=== PATIENT | female | born 1950 | race Caucasian/White ===

== ENCOUNTER → 2017-08-29 | Outpatient (CLI) | payer MEDICARE ==
--- NOTE | 2017-08-29 15:02 | CTL ---
EXAMINATION TYPE: CT Low Dose Lung DATE OF EXAM ORDERED: 08/29/2017 HISTORY: 66-year-old female with personal history of tobacco use, quit smoking in 2004. Lung cancer s creening CT DLP: 60.[address] CTDI: 1.68 mGy Automated exposure control for dose reduction was used. SCREENING VISIT: Baseline COMPARISON: None TECHNIQUE: Low dose computed tomography scan was performed through the chest at 1 mm thick sections a nd reconstructed images in the coronal plane at [address] DIAGNOSTIC QUALITY: Limited, but interpretable FINDINGS: There is prominent noise artifact from patient's large body habitus and low-dose radiation protocol. Heart is upper limits of normal in size without pericardial effusion. Coronary vessel calcifications are present and are a marker for coronary artery disease. The aorta is normal caliber with conventional arch vessel branching anatomy mild atherosclerotic arch calcifications. There is a 2.6 x 2.8 cm soft tissue nodule along the right paratracheal region, axial image 40. Some calcified left hilar lymph nodes suggest prior granulomatous disease. -[id number] diffuse bronchial wall thickening and focal patchy groundglass in the right midlung , axial image 112. - Tiny 3 mm subpleural pulmonary nodule is noted at the peripheral right midlung, axial image 105. - Strandy atelectasis in the inferior lingula and peripheral left base. - No consolidation or pleural effusion. Mild emphysematous change. Tiny hiatal hernia. Limited assessment of the upper abdomen due to the extent of moist artifact. Bones: Mild endplate spondylosis mid to lower thoracic spine. IMPRESSION: 1. BI-RADS 2 - benign appearance; tiny 3 mm pulmonary nodule at baseline. 2. A 2.8 cm soft tissue nodule along the right paratracheal region. Uncertain if this represents subs ternal thyroid extension or lymphadenopathy. Consider nuclear medicine thyroid scan to determine if t his represents thyroid tissue. Follow-up is recommended. 3. COPD and a patch of groundglass in the right midlung could represent a small infectious/inflammato ry focus. Clinically correlate. 4. Tiny hiatal hernia. RECOMMENDATION: 1. Continue with annual low-dose CT screening. 2. Recommendations in regards to the right paratracheal nodule mentioned above. 3. Smoking cessation.
== END | disposition home or self-care (01) ==
LOC: RADCTMAIN 13:08
PROVIDERS: ATTEND Internal Medicine Sleep Medicine
DX: Z12.2 Encounter for screening for malignant neoplasm of respiratory organs (principal); R91.1 Solitary pulmonary nodule; R91.8 Other nonspecific abnormal finding of lung field; J44.9 Chronic obstructive pulmonary disease, unspecified; K44.9 Diaphragmatic hernia without obstruction or gangrene; Z87.891 Personal history of nicotine dependence

== ENCOUNTER → 2017-11-22 | Outpatient (CLI) | payer MEDICARE ==
[2017-11-22 11:57] LABS: Blood Urea Nitrogen 19 mg/dL (7-17)
--- NOTE | 2017-11-22 14:02 | CT ---
EXAMINATION TYPE: CT neck chest w con DATE OF EXAM: 11/22/2017 COMPARISON: CT 08/29/2017 HISTORY: 67-year-old female with pulmonary nodule and Lymphadenopathy. Follow-up exam TECHNIQUE: Contiguous axial scanning of the neck and chest performed with IV Contrast, patient inject ed with 100 ml mL of Omnipaque 300. Coronal/sagittal reconstructions performed. CT DLP: 1484 mGycm Automated exposure control for dose reduction was used. FINDINGS: NECK: Visualized intracranial structures, orbits and globes, mastoid air cells, and paranasal sinuses appea r clear. The nasopharynx appears clear. There is retropharyngeal course of the internal carotid arteries impressing on the posterior pharynge al wall. Otherwise, oropharynx appears clear. The glottic and subglottic structures as well as the tracheal column are clear. Prevertebral soft tissues and epiglottis are normal. There is heterogeneous enlargement of the right lobe of the thyroid gland. Suspected underlying 1.5 c m nodule posterior mid pole. Previously described right paratracheal nodule appears to be extending from the thyroid gland and jt sures 2.8 x 3.1 cm, nodule image 46. Axial image 61 and 65. Scattered nonenlarged cervical lymph nodes are present. The submandibular and parotid glands appear satisfactory. Moderate spondylotic change lower cervical spine. CHEST: Heart is normal size without pericardial effusion. Coronary vessel calcifications are present in rem arkable for coronary artery disease. Ascending aorta is ectatic and 3.5 cm. There is mild to moderate atherosclerotic arch calcifications with conventional arch vessel branching anatomy. The right paratracheal nodule mentioned above does not seem to have significantly changed in size. Scattered nonenlarged mediastinal lymph nodes. Calcified subcarinal and left hilar lymph nodes compat ible with prior granulomatous disease. Calcified granuloma left lower lobe. Additional calcified granuloma along the left major fissure. Mild centrilobular emphysema. Tiny 3 mm subpleural pulmonary nodule peripheral right midlung is unchanged, axial image 21. Focal gr oundglass posterior right upper lobe axial image 25 is also unchanged. A 1 year follow-up is recommen ded to reassess this area. No consolidation or pleural effusion. Tiny hiatal hernia. Calcified granulomas in the spleen. Cholecystectomy clips are present. Suspect fatty infiltration of the liver. Mild diverticulosis in the visualized colon. A 1.3 cm nodule in the left adrenal gland is inadequately characterized but statistically, represents a benign adrenal adenoma. Bones: Degenerative disc disease mid to lower thoracic spine. IMPRESSION: NECK: 1. HETEROGENEITY OF THE RIGHT LOBE OF THE THYROID GLAND. UNDERLYING 1.5 CM POSTERIOR MID POLE NODULE IS SUSPECTED. 2. IN ADDITION, THE PREVIOUSLY DESCRIBED RIGHT PARATRACHEAL NODULE IS CONFIRMED TO EXTEND FROM THE TH YROID GLAND AND REPRESENTS A 3.1 X 2.8 CM NODULE, NOT SIGNIFICANTLY CHANGED. THYROID ULTRASOUND CAN F URTHER EVALUATE. DECISION TO BIOPSY CAN BE SUBSEQUENTLY MADE. CHEST: 1. COPD. NO NEW PULMONARY NODULES. THERE IS EVIDENCE OF PRIOR GRANULOMATOUS DISEASE. 2. FOCAL GROUNDGLASS POSTERIOR RIGHT UPPER LOBE REMAINS UNCHANGED FOR NEARLY 3 MONTHS. PATIENT CAN RE SUME ANNUAL LUNG CANCER SCREENING WHERE THIS CAN BE MONITORED. 3. A 1.3 CM LEFT ADRENAL GLAND NODULE IS INDETERMINATE BUT STATISTICALLY, REPRESENTS A BENIGN ADRENAL ADENOMA. THIS CAN ALSO BE REASSESSED ON THE PATIENT'S FOLLOW-UP EXAMS.
== END | disposition home or self-care (01) ==
LOC: RADCTMAIN 11:11
PROVIDERS: ATTEND Internal Medicine Sleep Medicine
DX: J44.9 Chronic obstructive pulmonary disease, unspecified (principal); D35.02 Benign neoplasm of left adrenal gland; E07.89 Other specified disorders of thyroid; R22.1 Localized swelling, mass and lump, neck; R91.1 Solitary pulmonary nodule; R59.0 Localized enlarged lymph nodes
CPT/HCPCS: 82565; 84520; 70491; 71260; 36415; Q9967

== ENCOUNTER → 2018-02-28 | Outpatient (CLI) | payer MEDICARE ==
[~2018-02-28] MED LIST: COSYNTROPIN 0.25 MG VIAL IVP ONE
[2018-02-28 09:09] VITALS: BP 149/69; PULSE 86; RESP 18; TEMP 97.7
[2018-02-28 18:27] LABS: Hemoglobin A1C 7.9 % (4.0-6.0)
== END | disposition home or self-care (01) ==
LOC: PROCWHC3 07:59
PROVIDERS: ATTEND Internal Medicine
DX: E27.9 Disorder of adrenal gland, unspecified (principal); E11.65 Type 2 diabetes mellitus with hyperglycemia
CPT/HCPCS: 83835; 82533; 82088; 84244; 82024; 83036; 96375; 96374; J0834; 82384

== ENCOUNTER → 2018-06-21 | Outpatient (CLI) | payer MEDICARE ==
--- NOTE | 2018-06-21 14:49 | XR ---
EXAM TYPE: LUMBAR SPINE X RAY SERIES COMPARISON: NONE HISTORY: Pain TECHNIQUE: 4 views are submitted. FINDINGS: Alignment is anatomic. The pedicles are intact. The transverse processes are intact. There is diff use osteopenia. Surgical clips in the right upper quadrant. There is a grade 1 anterolisthesis of L3 on L4. Multilevel moderate degenerative disc disease and advanced facet arthropathy. Vascular calcifi cations noted. IMPRESSION: 1. Multilevel degenerative disc disease, diffuse arthropathy with grade 1 anterolisthesis L3 on L4.
== END | disposition home or self-care (01) ==
LOC: RADXRYALE 12:53
PROVIDERS: ATTEND Internal Medicine
DX: M51.16 Intervertebral disc disorders with radiculopathy, lumbar region (principal); M43.16 Spondylolisthesis, lumbar region; M46.96 Unspecified inflammatory spondylopathy, lumbar region
CPT/HCPCS: 72110

== ENCOUNTER → 2019-03-14 | Outpatient (CLI) | payer MEDICARE ==
--- NOTE | 2019-03-14 15:44 | US ---
EXAMINATION TYPE: US kidneys/renal and bladder DATE OF EXAM: 03/14/2019 COMPARISON: NONE CLINICAL HISTORY: N28.1 renal cyst. EXAM MEASUREMENTS: Right Kidney: 13.7 x 5.3 x 6.0 cm Left Kidney: 13.5 x 5.4 x 6.2 cm Right Kidney: cyst lat/lower measures 2.5 x 2.6 x 2.7 cm. Left Kidney: No hydronephrosis or masses seen Bladder: wnl Bilateral Jets seen: Yes There is no evidence for hydronephrosis at this point in time. No nephrolithiasis is seen. No jenise s are identified. The urinary bladder is anechoic. Bilateral ureteral jets are seen. IMPRESSION: No hydronephrosis or nephrolithiasis. Simple appearing right renal cyst is seen measuring 2.7 cm. No internal complexity.
== END | disposition home or self-care (01) ==
LOC: RADUSWWP 15:14
PROVIDERS: ATTEND Internal Medicine
DX: N28.1 Cyst of kidney, acquired (principal)
CPT/HCPCS: 76770

== ENCOUNTER 2021-03-02 03:08 | Emergency (ER) | payer MEDICARE ==
--- NOTE | 2021-03-02 03:18 | ED ---
Recheck HPI - General Source: RN notes reviewed, old records reviewed Mode of arrival: EMS Limitations: no limitations - History of Present Illness MD Complaint: abnormal lab, other (Persistent nausea vomiting and headache) -: week(s) Returns Today for: persistent/worsening pain related to initial visit Symptoms Since Prior Visit: worsening pain Associated Symptoms: malaise, nausea Treatments Prior to Arrival: Given Pain Meds on <Coleman Jones - Last Filed: 03/02/21 07:50> <Arnoldo Garcia - Last Filed: 03/02/21 11:00> - General Stated Complaint: Nausea, vomiting Time Seen by Provider: 03/02/21 03:11 - History of Present Illness Initial Comments: This is a 70-year-old female DF for evaluation relatively poor strain secondary to current clinical condition which includes severe headache with persistent nausea and vomiting. Patient is just out of hospitalization 1 week and [facility] for same symptoms. She had headache during entire stay with persistent nausea vomiting and was told there was a be self-limited. states patient has had persistent headache. Patient very stubborn and does not want to come the hospital. No other fevers or (Coleman Jones) - Related Data Home Medications Medication Instructions Recorded Confirmed Aspirin [Adult Low Dose Aspirin EC] 81 mg PO DAILY 02/28/18 03/02/21 Carvedilol [Coreg] 6.25 mg PO DAILY 02/28/18 03/02/21 Insulin Aspart (For Pump) [NovoLOG 0.01 unit SQ-PUMP CONTINUOUS 02/28/18 03/02/21 (For Pump)] Losartan [Cozaar] 50 mg PO DAILY 02/28/18 03/02/21 Nitroglycerin 0.4 mg SUBLINGUAL Q5M PRN 02/28/18 03/02/21 Albuterol Sulfate [Ventolin HFA] 2 puff INHALATION RT-Q6H PRN 03/02/21 03/02/21 Cholecalciferol [Vitamin D3 (25 50 mcg PO DAILY 03/02/21 03/02/21 Mcg = 1000 Iu)] Meclizine [Antivert] 25 mg PO Q6H PRN 03/02/21 03/02/21 Oxybutynin Chloride 5 mg PO DAILY 03/02/21 03/02/21 Allergies Allergy/AdvReac Type Severity Reaction Status Date / Time iodine Allergy Itching Verified 03/02/21 09:33 metformin Allergy Unknown Verified 03/02/21 09:33 codeine AdvReac Vomiting Verified 03/02/21 09:33 rosuvastatin [From Crestor] AdvReac muscle pain Verified 03/02/21 09:33 Review of Systems ROS Other: All systems not noted in ROS Statement are negative. <Coleman Jones - Last Filed: 03/02/21 07:50> ROS Other: All systems not noted in ROS Statement are negative. <Arnoldo Garcia Raghavendra - Last Filed: 03/02/21 11:00> ROS Statement: Those systems with pertinent positive or pertinent negative responses have been documented in the HPI. General Exam General appearance: alert, in no apparent distress Head exam: Present: atraumatic, normocephalic, normal inspection Eye exam: Present: normal appearance, PERRL, EOMI. Absent: scleral icterus, conjunctival injection, periorbital swelling ENT exam: Present: normal exam, mucous membranes moist Neck exam: Present: normal inspection. Absent: tenderness, meningismus, lymphadenopathy Respiratory exam: Present: normal lung sounds bilaterally. Absent: respiratory distress, wheezes, rales, rhonchi, stridor Cardiovascular Exam: Present: regular rate, normal rhythm, normal heart sounds. Absent: systolic murmur, diastolic murmur, rubs, gallop, clicks GI/Abdominal exam: Present: soft, normal bowel sounds. Absent: distended, tenderness, guarding, rebound, rigid Extremities exam: Present: normal inspection, full ROM, normal capillary refill. Absent: tenderness, pedal edema, joint swelling, calf tenderness Back exam: Present: normal inspection Neurological exam: Present: alert, oriented X3, CN II-XII intact Psychiatric exam: Present: normal affect, normal mood Skin exam: Present: warm, dry, intact, normal color. Absent: rash <Coleman Jones - Last Filed: 03/02/21 07:50> Course <Coleman Jones - Last Filed: 03/02/21 07:50> Vital Signs 03/02/21 03/02/21 03/02/21 03:10 04:12 04:45 Temperature 98.3 F Pulse Rate 96 86 105 H Respiratory 18 18 20 Rate Blood Pressure 197/82 198/97 87/56 O2 Sat by Pulse 90 L 97 99 Oximetry 03/02/21 03/02/21 03/02/21 05:06 05:15 05:26 Temperature Pulse Rate 97 100 81 Respiratory 20 20 18 Rate Blood Pressure 101/56 107/57 69/49 O2 Sat by Pulse 99 99 99 Oximetry 03/02/21 03/02/21 03/02/21 05:35 05:41 05:56 Temperature Pulse Rate 87 83 80 Respiratory 18 20 18 Rate Blood Pressure 79/44 87/53 103/55 O2 Sat by Pulse 99 100 Oximetry 03/02/21 03/02/21 03/02/21 06:25 06:56 07:27 Temperature Pulse Rate 82 77 75 Respiratory 18 20 16 Rate Blood Pressure 117/63 142/66 126/57 O2 Sat by Pulse 100 97 Oximetry 03/02/21 03/02/21 03/02/21 08:29 09:20 10:45 Temperature Pulse Rate 78 73 85 Respiratory 16 16 16 Rate Blood Pressure 136/67 136/65 156/64 O2 Sat by Pulse 96 97 96 Oximetry - Reevaluation(s) Reevaluation #1: 03/02/21 05:40 Medical record is reviewed (Coleman Jones) Reevaluation #2: 03/02/21 05:40 Wall and x-ray patient did have a seizure. Because of seizure and headache patient went to computed tomography scan showing significant mass (Coleman Jones) - Consultations Consultation #1: Did speak with Dr. Stearns for oncology will obtain CTA chest abdomen pelvis (Coleman Jones) Medical Decision Making - Lab Data Result diagrams: 03/02/21 04:05 03/02/21 04:05 - EKG Data -: EKG Interpreted by Me (EKG sinus rhythm 87, HI 1:30 QRS 90 QTC 483) <Coleman Jones - Last Filed: 03/02/21 07:50> - Lab Data Result diagrams: 03/02/21 04:05 03/02/21 04:05 <Arnoldo Garcia - Last Filed: 03/02/21 11:00> - Medical Decision Making At 10:30 AM I was asked to evaluate this patient for possible transfer. The oncologist Dr. Stearns had seen the patient and reviewed imaging and requested that she be transferred for neurosurgical evaluation. At this time I did review the imaging showing a cerebellar mass with midline shift. She had been given Decadron and mannitol prior to my evaluation. Patient is arousable, somewhat lethargic. She is answering questions, she is alert and oriented 2. No facial droop. She is somewhat slow to respond and has mild dysarthria. She is moving all extremities symmetrically although she is weak throughout. Patient's states that she had complained of headache and nausea and vomiting for greater than 1 week. Patient had previously been admitted and the admitting physician Dr. Soto has also evaluated the patient and requested transfer. Patient will be transferred ER to ER. Her vital signs are stable she is maintaining her airway. I did discuss case with the ER physician at [facility] who will accept. (Arnoldo Garcia) - Lab Data Lab Results 03/02/21 03/02/21 03/02/21 Range/Units 04:05 04:05 04:05 WBC 15.9 H (3.8-10.6) k/uL RBC 5.54 H (3.80-5.40) m/uL Hgb 15.4 (11.4-16.0) gm/dL Hct 46.6 H (34.0-46.0) % MCV 84.1 (80.0-100.0) fL MCH 27.8 (25.0-35.0) pg MCHC 33.1 (31.0-37.0) g/dL RDW 13.7 (11.5-15.5) % Plt Count 349 (150-450) k/uL MPV 7.1 Neutrophils % 89 % Lymphocytes % 6 % Monocytes % 4 % Eosinophils % 1 % Basophils % 0 % Neutrophils # 14.1 H (1.3-7.7) k/uL Lymphocytes # 0.9 L (1.0-4.8) k/uL Monocytes # 0.6 (0-1.0) k/uL Eosinophils # 0.2 (0-0.7) k/uL Basophils # 0.0 (0-0.2) k/uL PT 11.8 (9.0-12.0) sec INR 1.1 (<1.2) APTT 22.2 (22.0-30.0) sec Sodium 138 (137-145) mmol/L Potassium 3.1 L (3.5-5.1) mmol/L Chloride 95 L (98-107) mmol/L Carbon Dioxide 34 H (22-30) mmol/L Anion Gap 9 mmol/L BUN 16 (7-17) mg/dL Creatinine 0.63 (0.52-1.04) mg/dL Est GFR (CKD-EPI)AfAm >90 (>60 ml/min/1.73 sqM) Est GFR (CKD-EPI)NonAf >90 (>60 ml/min/1.73 sqM) Glucose 195 H (74-99) mg/dL POC Glucose (mg/dL) (75-99) mg/dL POC Glu Roller Painter ID Plasma Lactic Acid Sven (0.7-2.0) mmol/L Calcium 10.1 (8.4-10.2) mg/dL Magnesium 1.9 (1.6-2.3) mg/dL Total Bilirubin 1.0 (0.2-1.3) mg/dL AST 36 (14-36) U/L ALT 36 H (4-34) U/L Alkaline Phosphatase 126 (38-126) U/L Lactate Dehydrogenase 1114 H (313-618) U/L C-Reactive Protein 22.2 H (<10.0) mg/L Total Protein 7.3 (6.3-8.2) g/dL Albumin 4.1 (3.5-5.0) g/dL Coronavirus (PCR) (Not Detectd) 03/02/21 03/02/21 03/02/21 Range/Units 04:05 04:35 04:58 WBC (3.8-10.6) k/uL RBC (3.80-5.40) m/uL Hgb (11.4-16.0) gm/dL Hct (34.0-46.0) % MCV (80.0-100.0) fL MCH (25.0-35.0) pg MCHC (31.0-37.0) g/dL RDW (11.5-15.5) % Plt Count (150-450) k/uL MPV Neutrophils % % Lymphocytes % % Monocytes % % Eosinophils % % Basophils % % Neutrophils # (1.3-7.7) k/uL Lymphocytes # (1.0-4.8) k/uL Monocytes # (0-1.0) k/uL Eosinophils # (0-0.7) k/uL Basophils # (0-0.2) k/uL PT (9.0-12.0) sec INR (<1.2) APTT (22.0-30.0) sec Sodium (137-145) mmol/L Potassium (3.5-5.1) mmol/L Chloride (98-107) mmol/L Carbon Dioxide (22-30) mmol/L Anion Gap mmol/L BUN (7-17) mg/dL Creatinine (0.52-1.04) mg/dL Est GFR (CKD-EPI)AfAm (>60 ml/min/1.73 sqM) Est GFR (CKD-EPI)NonAf (>60 ml/min/1.73 sqM) Glucose (74-99) mg/dL POC Glucose (mg/dL) 172 H (75-99) mg/dL POC Glu Roller Painter ID Latha Kimball Plasma Lactic Acid Sven 1.7 (0.7-2.0) mmol/L Calcium (8.4-10.2) mg/dL Magnesium (1.6-2.3) mg/dL Total Bilirubin (0.2-1.3) mg/dL AST (14-36) U/L ALT (4-34) U/L Alkaline Phosphatase (38-126) U/L Lactate Dehydrogenase (313-618) U/L C-Reactive Protein (<10.0) mg/L Total Protein (6.3-8.2) g/dL Albumin (3.5-5.0) g/dL Coronavirus (PCR) Not Detected (Not Detectd) Critical Care Time Critical Care Time: Yes Total Critical Care Time: 35 <Arnoldo Garcia - Last Filed: 03/02/21 11:00> Disposition Is patient prescribed a controlled substance at d/c from ED?: No <Coleman Jones - Last Filed: 03/02/21 07:50> - Out of Hospital Transfer - Req. Specs Out of Hospital Transfer - Requested Specifics: Other Emergency Center (Transferred to [facility]) <Arnoldo Garcia - Last Filed: 03/02/21 11:00> Clinical Impression: Brain tumor, Adrenal tumor, Pulmonary neoplasm Disposition: OTHER INSTITUTION NOT DEFINED Condition: Serious
[2021-03-02 03:24] VITALS: TEMP 98.3
[2021-03-02] MEDS ORDERED: SODIUM CHLORIDE 0.9% 1,000 ML IV STA (03:32)
[2021-03-02] MEDS ORDERED: ONDANSETRON 4 MG/2 ML VIAL IVP STA (03:32)
[2021-03-02 04:21] LABS: Basophils % (A) 0 %; Eosinophils # (A) 0.2 k/uL (0-0.7); Eosinophils % (A) 1 %; HCT 46.6 % (34.0-46.0); HGB 15.4 gm/dL (11.4-16.0); Lymphocytes # (A) 0.9 k/uL (1.0-4.8); Lymphocytes % (A) 6 %; MCH 27.8 pg (25.0-35.0); MCHC 33.1 g/dL (31.0-37.0); MCV 84.1 fL (80.0-100.0); Mean Platelet Volume 7.1; Monocytes # (A) 0.6 k/uL (0-1.0); Monocytes % (A) 4 %; Neutrophils # (A) 14.1 k/uL (1.3-7.7); Neutrophils % (A) 89 %; Platelet Count 349 k/uL (150-450); RBC 5.54 m/uL (3.80-5.40); RDW 13.7 % (11.5-15.5); WBC 15.9 k/uL (3.8-10.6)
[2021-03-02 04:38] LABS: Glucose,Whole Blood 172 mg/dL (75-99)
[2021-03-02 04:38] LABS: INR 1.1 (<1.2); Partial Thromboplastin Time 22.2 sec (22.0-30.0); Prothrombin Time 11.8 sec (9.0-12.0)
[2021-03-02] MEDS ORDERED: levETIRAcetam IV 1,500 MG in SALINE 1 100ML.BAG IVPB STA (04:45)
[2021-03-02] MEDS ORDERED: DEXAMETHASONE SOD PHOSPHATE 10 MG/ML 1 ML VIAL IV STA (04:46)
--- NOTE | 2021-03-02 04:46 | XR ---
EXAM: XR Abdomen, 2 Views and XR Chest, 1 View CLINICAL HISTORY: ITS.REASON XR Reason: nv TECHNIQUE: Frontal view of the chest, abdomen/pelvis. COMPARISON: No relevant prior studies available. FINDINGS: Lungs: Small patchy airspace opacities over bilateral middle lung zones and possibly lower lung zones. Pleural space: Unremarkable. No pneumothorax. Mediastinum: Unremarkable. Gastrointestinal tract: Nonspecific bowel gas pattern. Moderate amount of stool in the colon. No dilation. Organs: Cholecystectomy clips. Bones/joints: Osteopenia. Mild degenerative changes. IMPRESSION: 1. Small patchy airspace opacities in both lungs may suggest pneumonia. 2. Nonspecific bowel gas pattern.
[2021-03-02] MEDS ORDERED: LORazepam 2 MG/ML INJ IV STA (04:52)
[2021-03-02 04:53] LABS: ALT 36 U/L (4-34); AST 36 U/L (14-36); African American GFR (CKD) >90 (>60 ml/min/1.73 sqM); Albumin 4.1 g/dL (3.5-5.0); Alkaline Phosphatase 126 U/L (38-126); Anion Gap 9 mmol/L; Blood Urea Nitrogen 16 mg/dL (7-17); Calcium 10.1 mg/dL (8.4-10.2); Carbon Dioxide 34 mmol/L (22-30); Chloride 95 mmol/L (98-107); Glucose 195 mg/dL (74-99); LDH 1114 U/L (313-618); Magnesium 1.9 mg/dL (1.6-2.3); Non-African American GFR(CKD) >90 (>60 ml/min/1.73 sqM); Potassium 3.1 mmol/L (3.5-5.1); Sodium 138 mmol/L (137-145); Total Protein 7.3 g/dL (6.3-8.2)
--- NOTE | 2021-03-02 04:59 | CT ---
EXAM: CT Head Without Intravenous Contrast CLINICAL HISTORY: Reason: sz TECHNIQUE: Axial computed tomography images of the head/brain without intravenous contrast. CTDI is 49.27 mGy and DLP is 1158.4 mGy-cm. This CT exam was performed using one or more of the following dose reduction techniques: automated exposure control, adjustment of the mA and/or kV according to patient size, and/or use of iterative reconstruction technique. Coronal and sagittal reformatted images were created and reviewed. COMPARISON: No relevant prior studies available. FINDINGS: Brain: 4.2 x 4.7 x 3.7 cm intraparenchymal hypodense mass with cystic and peripheral solid components centered in left cerebellum, causes mass effect and 8mm midline shift to the right, best seen on series 2 0 1 image 19. No hemorrhage. Ventricles: Unremarkable. No ventriculomegaly. Bones/joints: No acute findings. Soft tissues: Unremarkable. Sinuses: Unremarkable as visualized. No acute sinusitis. Mastoid air cells: Unremarkable as visualized. No mastoid effusion. Orbits: Bilateral cataract surgeries. IMPRESSION: 4.2 x 4.7 x 3.7 cm intraparenchymal hypodense mass with cystic and peripheral solid components centered in left cerebellum, causes mass effect and 8mm midline shift to the right
[2021-03-02 05:08] LABS: C Reactive Protein 22.2 mg/L (<10.0)
[2021-03-02] MEDS ORDERED: SODIUM CHLORIDE 0.9% 1,000 ML IV ONE (05:36)
[2021-03-02] MEDS ORDERED: FAMOTIDINE 20 MG/2 ML VIAL IV STA (05:37)
[2021-03-02] MEDS ORDERED: diphenhydrAMINE 50 MG/ML 1 ML VIAL IVP STA (05:37)
[2021-03-02 07:37] VITALS: RESP 16
--- NOTE | 2021-03-02 07:40 | CT ---
EXAMINATION TYPE: CT ChestAbdPelvis w con DATE OF EXAM: 03/02/2021 COMPARISON: Low dose lung CT 08/29/2017 HISTORY: Nausea, vomiting CT DLP: 2201.5 mGycm CONTRAST: CT scan of the chest, abdomen and pelvis is performed without Oral Contrast and with IV Contrast, pat ient injected with 100 mL of Isovue 300. CT Chest: LUNGS: New pulmonary nodule left perihilar region measures 2.5 cm. Nodular infiltrate right upper lob e measures 2.2 cm. Associated pleural thickening at the lung bases and mild atelectasis. MEDIASTINUM: Substernal extension of the thyroid nodule right paratracheal region measures 2.5 cm. T horacic aorta is of normal caliber. The heart is enlarged. No evidence for mediastinal mass or ольга opathy. HILAR STRUCTURES: No evidence for mass. No hilar adenopathy is appreciated. OTHER: No significant abnormality. CONTRAST CT ABDOMEN AND PELVIS FINDINGS: LIVER/GB: The gallbladder is surgically absent. No space occupying hepatic lesion. Biliary tree is of normal caliber. PANCREAS: No inflammation. No distinct mass. SPLEEN: No splenic enlargement. No lesion seen. ADRENALS: Large right adrenal mass measuring 8.5 x 8.3 cm. Left adrenal nodule measuring 1.3 cm. KIDNEYS/BLADDER: No hydronephrosis. No nephrolithiasis. 3.5 cm right renal cyst. BOWEL: Normal appe ndix. Normal bowel caliber. No inflammation. GENITAL ORGANS: No gross abnormality. LYMPH NODES: No greater than 1cm abdominal or pelvic lymph nodes are appreciated. AORTA: No significant abnormality. OSSEOUS STRUCTURES: Degenerative change throughout the visualized thoracic and lumbar spine. OTHER: No significant additional abnormality is seen. IMPRESSION: 1. New left hilar pulmonary nodule as well as nodular infiltrate. Malignancy is not excluded. 2. Large right adrenal mass as well as a smaller left adrenal nodule. Metastatic disease is not exclu ded.
[2021-03-02] MEDS ORDERED: MORPHINE SULFATE 4 MG/ML SYRINGE IVP PRN (07:49)
[2021-03-02] MEDS ORDERED: MORPHINE SULFATE 4 MG/ML SYRINGE IVP STA (07:49)
[2021-03-02] MEDS ORDERED: ONDANSETRON 4 MG/2 ML VIAL IVP PRN (07:49)
[2021-03-02] MEDS ORDERED: SODIUM CHLORIDE 0.9% 1,000 ML IV SCH (08:00)
[2021-03-02] MEDS ORDERED: MANNITOL 20% IV ONE (10:30)
[2021-03-02] MEDS ORDERED: SALINE IV ONE (10:30)
[2021-03-02 10:47] VITALS: BP 156/64; PULSE 85
[2021-03-02] MEDS ORDERED: DEXAMETHASONE SOD PHOSPHATE 4 MG/ML 1 ML VIAL IV SCH ×2 (12:00)
--- NOTE | 2021-03-02 12:52 | P.CONS ---
History of Present Illness - Reason for Consult Consult date: 03/02/21 Brain mass, adrenal lesion, bilateral pulmonary nodules Requesting physician: Coleman Jones - Chief Complaint Altered mental status, questionable seizure - History of Present Illness Mrs. Cartagena/is a 70-year-old female that we've been asked to see regarding a brain lesion 4.2 x 4.7 x 3.7 in the left cerebellum area. There is midline shift. Patient's is at the bedside for history. Patient is on the monitor, stable vital signs, resting comfortably in appearance. Patient hasn't states that while they were in [place] patient had a sudden onset of neck pain associated with headache, and vomiting. Patient had been complaining as early as 3 weeks ago of being off balance, having almost motion sickness. She was having progressive symptoms with increased severity which was what led to the emergency room visit. MRI of the brain as above, CT of the chest abdomen and pelvis 8.5 x 8.3 right adrenal mass, bilateral pulmonary nodules. Patient is lethargic, she was medicated, possible seizure, when aroused and asked if she knew where she was, in the slurred voice she did answer hospital. Review of Systems at bedside provided history ROS unobtainable: due to mental status Past Medical History Past Medical History: Coronary Artery Disease (CAD), COPD, Diabetes Mellitus History of Any Multi-Drug Resistant Organisms: None Reported Past Surgical History: Heart Catheterization With Stent, Hysterectomy Past Psychological History: No Psychological Hx Reported Smoking Status: Former smoker Past Alcohol Use History: None Reported Past Drug Use History: None Reported Medications and Allergies Home Medications Medication Instructions Recorded Confirmed Type Aspirin [Adult Low Dose Aspirin EC] 81 mg PO DAILY 02/28/18 03/02/21 History Carvedilol [Coreg] 6.25 mg PO DAILY 02/28/18 03/02/21 History Insulin Aspart (For Pump) [NovoLOG 0.01 unit SQ-PUMP CONTINUOUS 02/28/18 03/02/21 History (For Pump)] Losartan [Cozaar] 50 mg PO DAILY 02/28/18 03/02/21 History Nitroglycerin 0.4 mg SUBLINGUAL Q5M PRN 02/28/18 03/02/21 History Albuterol Sulfate [Ventolin HFA] 2 puff INHALATION RT-Q6H PRN 03/02/21 03/02/21 History Cholecalciferol [Vitamin D3 (25 50 mcg PO DAILY 03/02/21 03/02/21 History Mcg = 1000 Iu)] Meclizine [Antivert] 25 mg PO Q6H PRN 03/02/21 03/02/21 History Oxybutynin Chloride 5 mg PO DAILY 03/02/21 03/02/21 History Allergies Allergy/AdvReac Type Severity Reaction Status Date / Time iodine Allergy Itching Verified 03/02/21 09:33 metformin Allergy Unknown Verified 03/02/21 09:33 codeine AdvReac Vomiting Verified 03/02/21 09:33 rosuvastatin [From Crestor] AdvReac muscle pain Verified 03/02/21 09:33 Physical Exam Vitals: Vital Signs Temp Pulse Resp BP Pulse Ox 03/02/21 10:45 85 16 156/64 96 03/02/21 09:20 73 16 136/65 97 03/02/21 08:29 78 16 136/67 96 03/02/21 07:27 75 16 126/57 97 03/02/21 06:56 77 20 142/66 100 03/02/21 06:25 82 18 117/63 03/02/21 05:56 80 18 103/55 100 03/02/21 05:41 83 20 87/53 99 03/02/21 05:35 87 18 79/44 03/02/21 05:26 81 18 69/49 99 03/02/21 05:15 100 20 107/57 99 03/02/21 05:06 97 20 101/56 99 03/02/21 04:45 105 H 20 87/56 99 03/02/21 04:12 86 18 198/97 97 03/02/21 03:10 98.3 F 96 18 197/82 90 L Intake and Output 03/01/21 03/02/21 03/02/21 22:59 06:59 14:59 Other: Weight 90.718 kg - Constitutional General appearance: no acute distress, obese - EENT Dry mouth, pupils 4 mm, equal Eyes: anicteric sclerae ENT: hearing grossly normal - Neck Neck: no lymphadenopathy - Respiratory Respiratory: bilateral: CTA - Cardiovascular Rhythm: regular Heart sounds: normal: S1, S2 Abnormal Heart Sounds: no systolic murmur, no diastolic murmur, no rub, no S3 Gallop, no S4 Gallop, no click, no other leg Peripheral Edema: bilateral: None - Gastrointestinal Large abdomen, no palpable organomegaly General gastrointestinal: normal bowel sounds, soft - Psychiatric Psychiatric: no A&O x's 3, no appropriate affect, no intact judgment & insight Results CBC & Chem 7: 03/02/21 04:05 03/02/21 04:05 Labs: Abnormal Lab Results - Last 24 Hours (Table) 03/02/21 03/02/21 03/02/21 Range/Units 04:05 04:05 04:35 WBC 15.9 H (3.8-10.6) k/uL RBC 5.54 H (3.80-5.40) m/uL Hct 46.6 H (34.0-46.0) % Neutrophils # 14.1 H (1.3-7.7) k/uL Lymphocytes # 0.9 L (1.0-4.8) k/uL Potassium 3.1 L (3.5-5.1) mmol/L Chloride 95 L (98-107) mmol/L Carbon Dioxide 34 H (22-30) mmol/L Glucose 195 H (74-99) mg/dL POC Glucose (mg/dL) 172 H (75-99) mg/dL ALT 36 H (4-34) U/L Lactate Dehydrogenase 1114 H (313-618) U/L C-Reactive Protein 22.2 H (<10.0) mg/L CT scan - abdomen: report reviewed CT scan - chest: report reviewed CT Scan - head: report reviewed CT scan - pelvis: report reviewed Assessment and Plan (1) Pulmonary mass Current Visit: Yes Status: Acute Priority: High Code(s): R91.8 - OTHER NONSPECIFIC ABNORMAL FINDING OF LUNG FIELD SNOMED Code(s): 521271011 (2) Adrenal tumor Current Visit: Yes Status: Acute Priority: High Code(s): D49.7 - NEOPLM OF UNSP BEHAV OF ENDO GLANDS AND OTH PRT NERVOUS SYS SNOMED Code(s): 108260190 (3) Brain tumor Current Visit: Yes Status: Acute Priority: High Code(s): D49.6 - NEOPLASM OF UNSPECIFIED BEHAVIOR OF BRAIN SNOMED Code(s): 443942162 Plan: Case was discussed with the ER physician, Attending and Rad Onc. Based on the location, size of the mass, midline shift recommendation is for immediate transfer to a tertiary care facility for urgent Neurosurgery evaluation. Patient needs immediate care for this. It was discussed with the fatality of herniation and patient's high risk of that. He agreed to transfer. Dexamethasone 8 mg every 6 hours Mannitol 25 g 1, repeat if pt is still her in 6 hours Doctor attests: I performed a history and physical examination of this patient, developed impression and plan of care. Discussed with dictator. I agree with dictators note, documented as a scribe.
--- NOTE | 2021-03-02 15:04 | P.CONS ---
History of Present Illness - History of Present Illness 70-year-old the female came to ER because of neck pain and headache and vomit ing. When I valid the patient patient was unable to provide any history to me patient was initially really drowsy and able to wake up later she woke up a bit and that was following commands and was able to wiggle the toes and fingers. Patient underwent evaluation CT of the head was done which showed a 4.2x 4.7X 3.7 cm mass in the cerebral area area with midline shift. Because of this reason patient is being transferred to a facility where there is a neurosurgery available. Patient was given Decadron patient was started on mannitol with some improvement in her mental status. Patient also has a nodule in the lung along with the mass in the adrenal gland possible primary being lung cancer. Review of Systems REVIEW OF SYSTEMS: Unable to obtain due to her clinical condition and patient is pretty much nonverbal at this time Past Medical History Past Medical History: Coronary Artery Disease (CAD), COPD, Diabetes Mellitus History of Any Multi-Drug Resistant Organisms: None Reported Past Surgical History: Heart Catheterization With Stent, Hysterectomy Past Psychological History: No Psychological Hx Reported Smoking Status: Former smoker Past Alcohol Use History: None Reported Past Drug Use History: None Reported Medications and Allergies Home Medications Medication Instructions Recorded Confirmed Type Aspirin [Adult Low Dose Aspirin EC] 81 mg PO DAILY 02/28/18 03/02/21 History Carvedilol [Coreg] 6.25 mg PO DAILY 02/28/18 03/02/21 History Insulin Aspart (For Pump) [NovoLOG 0.01 unit SQ-PUMP CONTINUOUS 02/28/18 03/02/21 History (For Pump)] Losartan [Cozaar] 50 mg PO DAILY 02/28/18 03/02/21 History Nitroglycerin 0.4 mg SUBLINGUAL Q5M PRN 02/28/18 03/02/21 History Albuterol Sulfate [Ventolin HFA] 2 puff INHALATION RT-Q6H PRN 03/02/21 03/02/21 History Cholecalciferol [Vitamin D3 (25 50 mcg PO DAILY 03/02/21 03/02/21 History Mcg = 1000 Iu)] Meclizine [Antivert] 25 mg PO Q6H PRN 03/02/21 03/02/21 History Oxybutynin Chloride 5 mg PO DAILY 03/02/21 03/02/21 History Allergies Allergy/AdvReac Type Severity Reaction Status Date / Time iodine Allergy Itching Verified 03/02/21 09:33 metformin Allergy Unknown Verified 03/02/21 09:33 codeine AdvReac Vomiting Verified 03/02/21 09:33 rosuvastatin [From Crestor] AdvReac muscle pain Verified 03/02/21 09:33 Physical Exam Vitals: Vital Signs Temp Pulse Resp BP Pulse Ox 03/02/21 10:45 85 16 156/64 96 03/02/21 09:20 73 16 136/65 97 03/02/21 08:29 78 16 136/67 96 03/02/21 07:27 75 16 126/57 97 03/02/21 06:56 77 20 142/66 100 03/02/21 06:25 82 18 117/63 03/02/21 05:56 80 18 103/55 100 03/02/21 05:41 83 20 87/53 99 03/02/21 05:35 87 18 79/44 03/02/21 05:26 81 18 69/49 99 03/02/21 05:15 100 20 107/57 99 03/02/21 05:06 97 20 101/56 99 03/02/21 04:45 105 H 20 87/56 99 03/02/21 04:12 86 18 198/97 97 03/02/21 03:10 98.3 F 96 18 197/82 90 L Intake and Output 03/01/21 03/02/21 03/02/21 22:59 06:59 14:59 Other: Weight 90.718 kg PHYSICAL EXAMINATION: GENERAL: Patient is arousable able to protect the airway following commands barely able to lift the the 4 limbs HEENT: Pupils in the mid constricted level but reacting to light No scleral icterus. No conjunctival pallor. Normocephalic, atraumatic. No pharyngeal erythema. No thyromegaly. CARDIOVASCULAR: S1 and S2 present. No murmurs, rubs, or gallops. PULMONARY: Chest is clear to auscultation, no wheezing or crackles. ABDOMEN: Soft, nontender, nondistended, normoactive bowel sounds. No palpable organomegaly. MUSCULOSKELETAL: No joint swelling or deformity. EXTREMITIES: No cyanosis, clubbing, or pedal edema. NEUROLOGICAL: Able to follow commands, able to wiggle fingers and toes. Although neuro exam is constantly changing after mannitol. SKIN: No rashes. Results CBC & Chem 7: 03/02/21 04:05 03/02/21 04:05 Labs: Abnormal Lab Results - Last 24 Hours (Table) 03/02/21 03/02/21 03/02/21 Range/Units 04:05 04:05 04:35 WBC 15.9 H (3.8-10.6) k/uL RBC 5.54 H (3.80-5.40) m/uL Hct 46.6 H (34.0-46.0) % Neutrophils # 14.1 H (1.3-7.7) k/uL Lymphocytes # 0.9 L (1.0-4.8) k/uL Potassium 3.1 L (3.5-5.1) mmol/L Chloride 95 L (98-107) mmol/L Carbon Dioxide 34 H (22-30) mmol/L Glucose 195 H (74-99) mg/dL POC Glucose (mg/dL) 172 H (75-99) mg/dL ALT 36 H (4-34) U/L Lactate Dehydrogenase 1114 H (313-618) U/L C-Reactive Protein 22.2 H (<10.0) mg/L Assessment and Plan Plan: -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 facility where she can get neurosurgical evaluation. -Possible primary is lung cancer. -Hypokalemia potassium need to be replaced as well -Leukocytosis reactive -Coronary artery disease -COPD without any acute exacerbation -Type 2 diabetes mellitus Discussed with the ER physician who agree to transfer the patient to [facility].
[2021-03-02] MEDS ORDERED: levETIRAcetam IV 1,000 MG in SALINE 1 100ML.BAG IVPB SCH (21:00)
== END 2021-03-02 12:00 | disposition other institution (70) ==
LOC: EC 03:08 → UNDOADMIN 07:48 → 5NMEDONC 07:48 → EC 12:00
DX: C79.31 Secondary malignant neoplasm of brain (principal); D49.7 Neoplasm of unspecified behavior of endocrine glands and other parts of nervous system; R91.8 Other nonspecific abnormal finding of lung field; E87.6 Hypokalemia; E11.9 Type 2 diabetes mellitus without complications; J44.9 Chronic obstructive pulmonary disease, unspecified; Z20.822 Contact with and (suspected) exposure to COVID-19; Z79.82 Long term (current) use of aspirin; Z79.899 Other long term (current) drug therapy; Z88.8 Allergy status to other drugs, medicaments and biological substances; Z91.041 Radiographic dye allergy status; Z88.5 Allergy status to narcotic agent; Z87.891 Personal history of nicotine dependence; Z96.41 Presence of insulin pump (external) (internal); Z95.5 Presence of coronary angioplasty implant and graft; Z90.710 Acquired absence of both cervix and uterus
CPT/HCPCS: 36415; 93005; 80053; 83605; 83615; 83735; 85025; 85610; 85730; 86140; 87635; 74022; 70450; 71260; 74177; 99285; 96365; 96375 ×6; 96361 ×6; J2060; J1200; J1100; J2405; J1953; Q9967

== ENCOUNTER 2021-03-29 11:32 | Emergency (ER) | payer MEDICARE ==
[2021-03-29 12:21] LABS: Basophils # (A) 0.1 k/uL (0-0.2); Basophils % (A) 1 %; Eosinophils # (A) 0.3 k/uL (0-0.7); Eosinophils % (A) 3 %; HCT 37.4 % (34.0-46.0); HGB 12.6 gm/dL (11.4-16.0); Lymphocytes # (A) 1.4 k/uL (1.0-4.8); Lymphocytes % (A) 16 %; MCH 28.8 pg (25.0-35.0); MCHC 33.8 g/dL (31.0-37.0); MCV 85.2 fL (80.0-100.0); Mean Platelet Volume 7.4; Monocytes # (A) 0.6 k/uL (0-1.0); Monocytes % (A) 7 %; Neutrophils # (A) 6.6 k/uL (1.3-7.7); Neutrophils % (A) 72 %; Platelet Count 290 k/uL (150-450); RBC 4.39 m/uL (3.80-5.40); RDW 14.5 % (11.5-15.5); WBC 9.1 k/uL (3.8-10.6)
[2021-03-29 12:33] LABS: INR 0.9 (<1.2); Partial Thromboplastin Time 22.2 sec (22.0-30.0); Prothrombin Time 9.8 sec (9.0-12.0)
[2021-03-29 12:37] LABS: ALT 41 U/L (4-34); AST 42 U/L (14-36); African American GFR (CKD) >90 (>60 ml/min/1.73 sqM); Albumin 3.1 g/dL (3.5-5.0); Alkaline Phosphatase 165 U/L (38-126); Anion Gap 6 mmol/L; Blood Urea Nitrogen 13 mg/dL (7-17); Calcium 9.5 mg/dL (8.4-10.2); Carbon Dioxide 29 mmol/L (22-30); Chloride 99 mmol/L (98-107); Glucose 306 mg/dL (74-99); Non-African American GFR(CKD) >90 (>60 ml/min/1.73 sqM); Potassium 4.6 mmol/L (3.5-5.1); Sodium 134 mmol/L (137-145); Total Bilirubin 0.3 mg/dL (0.2-1.3); Total Protein 5.9 g/dL (6.3-8.2)
--- NOTE | 2021-03-29 12:56 | XR ---
EXAMINATION TYPE: XR chest 2V DATE OF EXAM: 03/29/2021 COMPARISON: 04/19/2012 HISTORY: Shortness of breath TECHNIQUE: Frontal and lateral views of the chest are obtained. FINDINGS: Scattered senescent parenchymal changes noted. Hyperinflation compatible with COPD. No evidence for infiltrate. Mild linear atelectasis or parenchymal scarring left lung base. 2.4 mm pu lmonary nodule left mid lung zone is suspicious for malignancy. Heart size is stable. Mediastinal structures are stable and grossly unremarkable. No evidence for hilar prominence. Degenerative changes dorsal spine. IMPRESSION: 2.4 mm pulmonary nodule left mid lung zone is suspicious for malignancy. The remainder of the lungs a ppear to be relatively clear.
--- NOTE | 2021-03-29 12:59 | CT ---
EXAMINATION TYPE: CT brain wo con DATE OF EXAM: 03/29/2021 COMPARISON: 03/02/2021 INDICATION: Post Op partial tumor removal, weakness and dizziness. DLP: 1099.4 mGycm, Automated exposure control for dose reduction was used. CONTRAST: None CT of the brain is performed utilizing 3 mm thick sections through the posterior fossa and 3 mm thick sections through the remaining calvarium. Study is performed within 24 hours of arrival to the hosp ital. No abnormal hyperdensity is present to suggest an acute intracranial hemorrhage. Appears to be mass effect within the left cerebellum with effacement of the fourth ventricle and midl ine shift towards the right. On this study the mass is approximately 3.5 cm in transverse dimension. This extends towards the craniotomy defect in the left occipital region may be 6 cm in length includi ng postsurgical change. Mass size however is diminished from 03/02/2021 presurgical image. No acute infarcts are evident. Fourth ventricle is compressed. Remaining Ventricles and sulci are appropriate for the patient age. No temporal horn dilatation is evident. Paranasal sinuses and mastoid air cells within the [id number] are clear. IMPRESSIONS: 1. Surgical changes within the left cerebellar region. Masslike area has diminished to approximatel y 3 cm in diameter. Mass effect on the fourth ventricle however remains present without hydrocephalus .
--- NOTE | 2021-03-29 12:59 | ED ---
Neuro HPI - General Chief Complaint: Neuro Symptoms/Deficit Stated Complaint: double vision/vertigo Time Seen by Provider: 03/29/21 11:46 Source: patient, EMS Mode of arrival: EMS - History of Present Illness Is the patient presenting with stroke symptoms?: No -: week(s) Initial Comments: 70-year-old male presenting for 3 days of nausea headache, on and off dizziness on and off left arm being uncoordinated s/p tumor resection. pt states that she is 2 week s/p a tumor resection in brain stem, she states they were unable to get all the tumor out. Pt states she was feeling fine at the rehabilitation center after surgery where she is at, until the last 3 days she has had on and off dizziness, her left arm "feels drunk" and sometimes she has double vision. Pt denies vomitnig, but states she has had some nausea and headaches. SHe denies fevers, weakness of the extremities or sensation deficits. Patient states her surgeon was Dr. Govea - Related Data Home Medications: Home Medications Medication Instructions Recorded Confirmed Aspirin [Adult Low Dose Aspirin EC] 81 mg PO HS 02/28/18 03/29/21 Carvedilol [Coreg] 6.25 mg PO BID@0700,1900 02/28/18 03/29/21 Losartan [Cozaar] 50 mg PO DAILY 02/28/18 03/29/21 Meclizine [Antivert] 25 mg PO DAILY PRN 03/02/21 03/29/21 Oxybutynin Chloride 5 mg PO DAILY 03/02/21 03/29/21 Acetaminophen [Tylenol Arthritis] 650 mg PO Q6H PRN 03/29/21 03/29/21 Bisacodyl 10 mg PO BID PRN 03/29/21 03/29/21 Dexamethasone [Decadron] 4 mg PO BID@0700,1900 03/29/21 03/29/21 Heparin Sodium,Porcine [Heparin 5,000 unit SQ Q8HR@0500,1300,2100 03/29/21 03/29/21 Sodium] Insulin Aspart [NovoLOG Flexpen] 10 units SQ TID@0700,1100,1600 03/29/21 03/29/21 Insulin Aspart [NovoLOG Flexpen] See Protocol SQ ACHS 03/29/21 03/29/21 Insulin Detemir [Levemir Flextouch] 18 units SQ HS@2000 03/29/21 03/29/21 Isoniazid 300 mg PO DAILY 03/29/21 03/29/21 Magnesium Oxide [Mag-Ox] 400 mg PO DAILY 03/29/21 03/29/21 Pantoprazole Sodium [Protonix] 40 mg PO BID@0700,1600 03/29/21 03/29/21 Promethazine HCl 12.5 mg PO Q6H PRN 03/29/21 03/29/21 Pyridoxine [Vitamin B-6] 50 mg PO BID 03/29/21 03/29/21 levETIRAcetam [Keppra] 1,000 mg PO BID@0700,1900 03/29/21 03/29/21 rifAMPin [Rifampin] 600 mg PO DAILY 03/29/21 03/29/21 Previous Rx's Medication Instructions Recorded Dexamethasone [Decadron] 4 mg PO Q8H 7 Days #21 tablet 03/29/21 Allergies/Adverse Reactions: Allergies Allergy/AdvReac Type Severity Reaction Status Date / Time iodine Allergy Itching Verified 03/29/21 11:53 metformin Allergy Unknown Verified 03/29/21 11:53 Penicillins Allergy Unknown Verified 03/29/21 11:53 codeine AdvReac Vomiting Verified 03/29/21 11:53 rosuvastatin [From Crestor] AdvReac muscle pain Verified 03/29/21 11:53 Review of Systems ROS Statement: Those systems with pertinent positive or pertinent negative responses have been documented in the HPI. ROS Other: All systems not noted in ROS Statement are negative. General Exam - General Exam Comments Initial Comments: General: The patient is awake and alert, in no distress Eye: +3 mm pupils are equal, round and reactive to light, extra-ocular movements are intact. No nystagmus. There is normal conjunctiva bilaterally. No signs of icterus. Ears, nose, mouth and throat: There are moist mucous membranes and no oral lesions. Neck: The neck is supple, there is no tenderness or JVD. Cardiovascular: There is a regular rate and rhythm. No murmur, rub or gallop is appreciated. Respiratory: Lungs are clear to auscultation, respirations are non-labored, breath sounds are equal. No wheezes, stridor, rales, or rhonchi. Gastrointestinal: Soft, non-distended, non-tender abdomen without masses or o rganomegaly noted. There is no rebound or guarding present. Musculoskeletal: Normal ROM, no tenderness. Strength 5/5. Sensation intact. Pulses equal bilaterally 2+. Neurological: A&O x 3. CN II-XII intact, ataxia of the left UE, right is coordi nated. Pt has no weakness/sensation deficits of the UE or LE b/l. Skin: Skin is warm and dry and no rashes or lesions are noted. Psychiatric: Cooperative, appropriate mood & affect, normal judgment. Stroke MDM - Lab Data Result diagrams: 03/29/21 12:09 03/29/21 12:09 Lab Results 03/29/21 03/29/21 03/29/21 Range/Units 12:09 12:09 12:09 WBC 9.1 (3.8-10.6) k/uL RBC 4.39 (3.80-5.40) m/uL Hgb 12.6 (11.4-16.0) gm/dL Hct 37.4 (34.0-46.0) % MCV 85.2 (80.0-100.0) fL MCH 28.8 (25.0-35.0) pg MCHC 33.8 (31.0-37.0) g/dL RDW 14.5 (11.5-15.5) % Plt Count 290 (150-450) k/uL MPV 7.4 Neutrophils % 72 % Lymphocytes % 16 % Monocytes % 7 % Eosinophils % 3 % Basophils % 1 % Neutrophils # 6.6 (1.3-7.7) k/uL Lymphocytes # 1.4 (1.0-4.8) k/uL Monocytes # 0.6 (0-1.0) k/uL Eosinophils # 0.3 (0-0.7) k/uL Basophils # 0.1 (0-0.2) k/uL PT 9.8 (9.0-12.0) sec INR 0.9 (<1.2) APTT 22.2 (22.0-30.0) sec Sodium 134 L (137-145) mmol/L Potassium 4.6 (3.5-5.1) mmol/L Chloride 99 (98-107) mmol/L Carbon Dioxide 29 (22-30) mmol/L Anion Gap 6 mmol/L BUN 13 (7-17) mg/dL Creatinine 0.36 L (0.52-1.04) mg/dL Est GFR (CKD-EPI)AfAm >90 (>60 ml/min/1.73 sqM) Est GFR (CKD-EPI)NonAf >90 (>60 ml/min/1.73 sqM) Glucose 306 H (74-99) mg/dL Calcium 9.5 (8.4-10.2) mg/dL Total Bilirubin 0.3 (0.2-1.3) mg/dL AST 42 H (14-36) U/L ALT 41 H (4-34) U/L Alkaline Phosphatase 165 H (38-126) U/L Troponin I (0.000-0.034) ng/mL Total Protein 5.9 L (6.3-8.2) g/dL Albumin 3.1 L (3.5-5.0) g/dL 03/29/21 Range/Units 12:09 WBC (3.8-10.6) k/uL RBC (3.80-5.40) m/uL Hgb (11.4-16.0) gm/dL Hct (34.0-46.0) % MCV (80.0-100.0) fL MCH (25.0-35.0) pg MCHC (31.0-37.0) g/dL RDW (11.5-15.5) % Plt Count (150-450) k/uL MPV Neutrophils % % Lymphocytes % % Monocytes % % Eosinophils % % Basophils % % Neutrophils # (1.3-7.7) k/uL Lymphocytes # (1.0-4.8) k/uL Monocytes # (0-1.0) k/uL Eosinophils # (0-0.7) k/uL Basophils # (0-0.2) k/uL PT (9.0-12.0) sec INR (<1.2) APTT (22.0-30.0) sec Sodium (137-145) mmol/L Potassium (3.5-5.1) mmol/L Chloride (98-107) mmol/L Carbon Dioxide (22-30) mmol/L Anion Gap mmol/L BUN (7-17) mg/dL Creatinine (0.52-1.04) mg/dL Est GFR (CKD-EPI)AfAm (>60 ml/min/1.73 sqM) Est GFR (CKD-EPI)NonAf (>60 ml/min/1.73 sqM) Glucose (74-99) mg/dL Calcium (8.4-10.2) mg/dL Total Bilirubin (0.2-1.3) mg/dL AST (14-36) U/L ALT (4-34) U/L Alkaline Phosphatase (38-126) U/L Troponin I <0.012 (0.000-0.034) ng/mL Total Protein (6.3-8.2) g/dL Albumin (3.5-5.0) g/dL - Medical Decision Making Neurosurgery consulted I spoke Directly to patient surgeon who was familar with case- I read CT results, discussed pt presentation as described in HPI. he recommended changes in his steroids. he states she is safe for transfer back to the rehabilitation facility on 4mg decadrn q8h. pt updated on recommended care plan and i advised him to set up appointments with both neurosurgery and oncology within the nex t2-3 days. he is agreeable to care plan and discharge. Dr Rivas agreeable to care plan and discharge. Past Medical History Past Medical History: Coronary Artery Disease (CAD), Cancer, COPD, Diabetes Mellitus History of Any Multi-Drug Resistant Organisms: None Reported Past Surgical History: Heart Catheterization With Stent, Hysterectomy Additional Past Surgical History / Comment(s): brain [facility] Past Psychological History: No Psychological Hx Reported Smoking Status: Former smoker Past Alcohol Use History: None Reported Past Drug Use History: None Reported Course Vital Signs 03/29/21 03/29/21 11:36 15:14 Temperature 98.8 F 98.0 F Pulse Rate 110 H 89 Respiratory 16 18 Rate Blood Pressure 120/78 122/78 O2 Sat by Pulse 95 96 Oximetry - Reevaluation(s) Reevaluation #1: Spoke directly with Dr Arrington who was in the OR at the time, we discussed patient case whom he was familar with. He states that we can increase the decadron that is currently 4mg BID to 4mg q8h and give her a bolus of 12mg IV once. He states that she would be safe to go back to the [facility] and follow-up with oncology for further guidance/recommendations/radiation. I discussed this plan wtih patient who is agreeable. Pt given decadron. and Tri called. Paper script provided. 03/29/21 14:06 Disposition Clinical Impression: Lung nodule, Diplopia, Dizziness, Ataxia of left upper extremity Disposition: HOME SELF-CARE Condition: Good Instructions (If sedation given, give patient instructions): Brain Tumors (DC) Additional Instructions: Please use medication as discussed. Please follow-up with family doctor in the next 2 dayss, contact oncologist to discuss steroid changes per Dr. Arrington Please return to emergency room if the symptoms increase or worsen or for any other concerns. Prescriptions: Dexamethasone [Decadron] 4 mg PO Q8H 7 Days #21 tablet Is patient prescribed a controlled substance at d/c from ED?: No Referrals: Alice Zafar MD [Primary Care Provider] - 1-2 days Time of Disposition: 13:35
[2021-03-29] MEDS ORDERED: DEXAMETHASONE SOD PHOSPHATE 4 MG/ML 1 ML VIAL IV STA (13:32)
[2021-03-29] MEDS ORDERED: ACETAMINOPHEN TAB 325 MG TAB PO STA (14:42)
[2021-03-29 15:15] VITALS: BP 122/78; PULSE 89; RESP 18; TEMP 98
== END 2021-03-29 15:15 | disposition home or self-care (01) ==
LOC: EC 11:32
DX: H53.2 Diplopia (principal); R91.1 Solitary pulmonary nodule; R27.0 Ataxia, unspecified; I25.10 Atherosclerotic heart disease of native coronary artery without angina pectoris; J44.9 Chronic obstructive pulmonary disease, unspecified; E11.9 Type 2 diabetes mellitus without complications; Z85.9 Personal history of malignant neoplasm, unspecified; Z95.5 Presence of coronary angioplasty implant and graft; Z90.710 Acquired absence of both cervix and uterus; Z87.891 Personal history of nicotine dependence; Z79.4 Long term (current) use of insulin
CPT/HCPCS: 36415; 93005; 80053; 84484; 85025; 85610; 85730; 71046; 70450; 99285; 96374; J1100

== ENCOUNTER → 2021-04-13 | Outpatient (CLI) | payer MEDICARE ==
--- NOTE | 2021-04-13 15:47 | MR ---
EXAMINATION TYPE: MR brain wo/w con DATE OF EXAM: 04/13/2021 COMPARISON: Previous brain MRI 03/04/2021 from outside institution HISTORY: Malignant neoplasm brain TECHNIQUE: Multiplanar, multisequence images of the brain and brainstem is performed without and with IV contras t, utilizing 9 mL intravenous Gadavist . FINDINGS: Diffusion weighted images demonstrate no evidence of a recent infarct. . The large posterio r fossa space occupying lesion which measured approximately 4.9 cm in transverse dimension by 3.9 cm in AP dimension on scan from outside institution now measures approximately 5.7 cm in greatest transv erse dimension with again noted mass effect on the fourth ventricle. Lesion measures pressure 2.7 cm in cephalad to caudal dimension, 3.5 cm in AP dimension, there is peripheral enhancement, multilobula r appearing lesion which shows T2 bright signal, mixed intermediate signal on inversion recovery, low signal on T1-weighted images. There is some local gliosis present. Abnormal signal is noted in the c alvarium the posterior left occipital bone, correlate for history of surgery at this level. Mass effe ct is noted at the posterior brainstem and roseline at the pontine segment of from left towards the right Scattered hyperintensities are again noted in the periventricular white matter on inversion recovery T2-weighted sequences. There is no hemorrhage evident. IMPRESSION: Mass effect due to the posterior fossa lesion is present, there are postop changes, perip heral enhancement, difficult to exclude residual tumor
== END | disposition home or self-care (01) ==
LOC: RADMRIMAIN 08:50
PROVIDERS: ATTEND Radiology Radiation Oncology
DX: C79.31 Secondary malignant neoplasm of brain (principal)
CPT/HCPCS: 70553; A9585